=== PATIENT | female | born 1960 | race Caucasian/White ===

== ENCOUNTER → 2017-01-26 | Outpatient (CLI) | payer OTHER | END | disposition home or self-care (01) | LOC: RAD 09:59 | PROVIDERS: ATTEND Ophthalmology | DX: H40.20X0 Unspecified primary angle-closure glaucoma, stage unspecified (principal) | CPT/HCPCS: 66761 ==

== ENCOUNTER → 2017-02-01 | Outpatient (CLI) | payer OTHER ==
[~2017-02-01] MED LIST: APRACLONIDINE 1% 0.1 ML OPH ONE; PILOCARPINE 2% 15ML OPH ONE; PROPARACAINE 0.5% 15 ML OPH ONE
== END | disposition home or self-care (01) ==
LOC: RAD 12:18
PROVIDERS: ATTEND Ophthalmology
DX: H40.20X0 Unspecified primary angle-closure glaucoma, stage unspecified (principal)
CPT/HCPCS: 66761; Z7610

== ENCOUNTER 2018-11-01 09:04 | Day surgery (SDC) | payer OTHER ==
[~2018-11-01] VITALS: Ht 160 cm; Wt 76.7 kg
[~2018-11-01 09:04] MED LIST changes: -APRACLONIDINE 1% 0.1 ML OPH ONE; -PILOCARPINE 2% 15ML OPH ONE; -PROPARACAINE 0.5% 15 ML OPH ONE; +PROPOFOL 200 MG INJ ONE
[2018-11-01 10:40] VITALS: BP 132/59; PULSE 77; RESP 20; Ht 160 cm; Wt 76.7 kg
[2018-11-01] MEDS ORDERED: PROPRANOLOL (10:46)
[2018-11-01] MEDS ORDERED: PANTOPRAZOLE (10:46)
[2018-11-01] MEDS ORDERED: ADMALOG (10:46)
[2018-11-01] MEDS ORDERED: BASAGLAR (10:46)
[2018-11-01] MEDS ORDERED: PREDNISONE (10:46)
[2018-11-01] MEDS ORDERED: SUCRALFATE (10:46)
[2018-11-01] MEDS ORDERED: LIDOCAINE 100 MG SYRINGE ONE (11:13)
[2018-11-01] MEDS ORDERED: PROPOFOL 20 ML ONE (11:13)
--- NOTE | 2018-11-01 11:16 | PREAC ---
Date/Time of Note Date/Time of Note DATE: 11/01/18 TIME: 11:14 Anesthesia Eval and Record Evaluation Time Pre-Procedure Interview DATE: 11/01/18 TIME: 11:14 Age 58 Sex female NPO: 8 hrs Preoperative diagnosis VARICES Planned procedure EGD Past Medical History Past Medical History: Includes Endo: Diabetes Hepatic: Hepatitis (AUTOIMMUNE HEPATITIS) Surgery & Anesthesia Issues No known issue Meds Anticoagulation: No Beta Daria within 24 hr: Yes Reason Beta Draia not given: Pt. not on B-Daria Reported Medications [Sucralfate] No Conflict Check 11/01/18 [Propranolol] No Conflict Check 11/01/18 [Prednisone] No Conflict Check 11/01/18 [Pantoprazole] No Conflict Check 11/01/18 [Basaglar] No Conflict Check 11/01/18 [Admalog] No Conflict Check 11/01/18 Meds reviewed: Yes Allergies Coded Allergies: No Known Allergy (Unverified , 11/01/18) Allergies Reviewed: Yes Labs/Studies Labs Reviewed: Reviewed by anesthesiologist test: N/A Pre-procedure Exam Last vitals Vital Signs Date Temp Pulse Resp B/P (MAP) Pulse Ox O2 O2 Flow FiO2 Time Delivery Rate 11/01/18 98.3 77 20 132/59 100 Room Air 10:40 (83) Airway: Adequate mouth opening, Adequate thyromental dist Mallampati: Mallampati II Teeth: Normal Lung: Normal Heart: Normal ASA Physical Status ASA physical status: 3 Emergency: None Planned Anesthetic General/MAC: MAC Planned Pain Management Parenteral pain med, Local by surgeon Pre-operative Attestations Prior to commencing anesthesia and surgery, the patient was re-evaluated, there was verification of: *The patient's identity *The results of appropriate recent lab work and preoperative vital signs *The above evaluation not changing prior to induction *Anesthetic plan, risk benefits, alternative and complications discussed with patient/family; questions answered; patient/family understands, accepts and wishes to proceed. JAQUAN LOREDO November 01, 2018 11:16
[2018-11-01] MEDS ORDERED: CIPROFLOXACIN 400MG/D5W 200 ML ONE (11:17)
[2018-11-01] MEDS ORDERED: FENTAnyl 50 MCG/ML VIAL ONE (11:32)
[2018-11-01 11:52] VITALS: BP 121/61; PULSE 76; RESP 20
--- NOTE | 2018-11-01 11:54 | PAC ---
Date/Time of Note Date/Time of Note DATE: 11/01/18 TIME: 11:53 Post-Anesthesia Notes Post-Anesthesia Note Last documented vital signs POST: BP 106/58 hr 84 spO2 98% tEMP 97% RR 16 Vital Signs Date Temp Pulse Resp B/P (MAP) Pulse Ox O2 O2 Flow FiO2 Time Delivery Rate 11/01/18 98.3 77 20 132/59 100 Room Air 10:40 (83) Activity: WNL Respiratory function: WNL Cardiovascular function: WNL Mental status: Baseline Pain reasonably controlled: Yes Hydration appropriate: Yes Nausea/Vomiting absent: Yes JAQUAN LOREDO November 01, 2018 11:54
[2018-11-01 12:07] VITALS: BP 110/61; PULSE 76; RESP 20
[2018-11-01] MEDS ORDERED: EPINEPHrine 0.1 MG/ML SYG ONE (17:38)
== END 2018-11-01 15:01 | disposition home or self-care (01) ==
LOC: GIL 09:04
PROVIDERS: ATTEND Internal Medicine Gastroenterology
DX: I85.11 Secondary esophageal varices with bleeding (principal); K31.811 Angiodysplasia of stomach and duodenum with bleeding; E11.9 Type 2 diabetes mellitus without complications
CPT/HCPCS: 43239; 82962; J0171; J0744; Z7610; J2001; J3010